=== PATIENT | male | born 1940 | race Hispanic/Latino ===

== ENCOUNTER 2018-07-26 11:07 | Inpatient (IN) | payer OTHER ==
[~2018-07-26] VITALS: Ht 160 cm; Wt 68.6 kg
[2018-07-26] VITALS (15 sets, daily range): BP systolic 81–124; BP diastolic 48–77
[2018-07-26 12:17] LABS: APPEARANCE,URINE Cloudy (CLEAR); BILIRUBIN,URINE Small (NEGATIVE); COLOR,URINE Dark Yellow (YELLOW); GLUCOSE, URINE (UA) Negative (NEGATIVE); KETONES,URINE Trace mg/dL (NEGATIVE); LEUKOCYTE ESTERASE ,URINE Trace (NEGATIVE); NITRATE,URINE Negative (NEGATIVE); OCCULT BLOOD,URINE Negative (NEGATIVE); PROTEIN,URINE Trace (NEGATIVE)
[2018-07-26 12:31] LABS: BACTERIA,URINE Few /HPF (None Seen); HYALINE CASTS, URINE 0-1 /LPF (0-1 /LPF); MUCUS,URINE Rare LPF (None Seen); RBC,URINE None Seen /HPF (0-1); SQUAMOUS EPITHELIAL CELL,UR Few /HPF (0-2); WBC,URINE 0-1 /HPF (0-1)
[2018-07-26 12:34] LABS: AMPHET/METH SCREEN,URINE NEGATIVE (NEGATIVE); BARBITURATE SCREEN, URINE NEGATIVE (NEGATIVE); BENZODIAZEPINES SCREEN,URINE NEGATIVE (NEGATIVE); CANNABINOID SCREEN,URINE NEGATIVE (NEGATIVE); COCAINE SCREEN,URINE NEGATIVE (NEGATIVE); OPIATE SCREEN,URINE NEGATIVE (NEGATIVE); PHENCYCLIDINE SCREEN,URINE NEGATIVE (NEGATIVE)
[2018-07-26 12:43] LABS: BASOPHILS % (AUTO) 0.4 % (0.0-5.0); EOSINOPHILS % (AUTO) 0.5 % (0.0-8.0); HEMATOCRIT 37.1 % (42-54); LYMPHOCYTES % (AUTO) 5.9 % (21.0-51.0); MEAN CORPUSCULAR HEMOGLOBIN 32.5 pg (27.0-33.0); MEAN CORPUSCULAR HGB CONC 34.1 g/dL (32.0-36.0); MEAN CORPUSCULAR VOLUME 95.3 fL (79-99); MONOCYTES % (AUTO) 10.8 % (3.0-13.0); NEUTROPHILS % (AUTO) 82.4 % (40.0-77.0); PLATELET COUNT (AUTO) 379 K/uL (130-400); RED BLOOD CELL COUNT(AUTO) 3.89 MIL/uL (4.50-6.20); RED CELL DISTRIBUTION WIDTH 12.9 % (11.0-15.5); WHITE BLOOD COUNT (AUTO) 11.3 K/uL (4.8-10.8)
[2018-07-26 12:51] LABS: CREATININE 1.8 mg/dL (0.5-1.5); POTASSIUM 3.7 mmol/L (3.5-5.1)
[2018-07-26 12:56] LABS: ALBUMIN 2.8 g/dL (3.5-5.0); BILIRUBIN,TOTAL 0.7 mg/dL (0.2-1.0); TOTAL PROTEIN, SERUM 8.1 g/dL (6.0-8.3)
[2018-07-26] MEDS ORDERED: SODIUM CHLORIDE 0.9% 500ML 500 ML IV ONE (14:14)
[2018-07-26] MEDS ORDERED: VANCOMYCIN 1GM+NS 250ML 250 ML IV ONE (15:32)
[2018-07-26 15:33] LABS: APPEARANCE,URINE CLEAR (CLEAR); BILIRUBIN,URINE NEGATIVE (NEGATIVE); COLOR,URINE YELLOW (YELLOW); GLUCOSE, URINE (UA) NEGATIVE (NEGATIVE); KETONES,URINE 5 mg/dL (NEGATIVE); LEUKOCYTE ESTERASE ,URINE NEGATIVE (NEGATIVE); NITRATE,URINE NEGATIVE (NEGATIVE); OCCULT BLOOD,URINE TRACE-INTACT (NEGATIVE); PH,URINE 5.5 (5.0-8.0); PROTEIN,URINE TRACE (NEGATIVE)
[2018-07-26 15:48] LABS: INR 1.1 (0.85-1.15); PARTIAL THROMBOPLASTIN TIME 35.9 SEC (26.3-35.5); PROTHROMBIN TIME 11.5 SEC (9.6-11.6)
[2018-07-26] MEDS ORDERED: ENOXAPARIN SODIUM 40 MG/0.4 ML SYRINGE SQ ONE (15:53)
[2018-07-26] MEDS ORDERED: SODIUM CHLORIDE 0.9% 50 ML IV ONE (15:54)
[2018-07-26] MEDS ORDERED: ZOSYN 3.375GM+NS 50ML 50 ML IV ONE (15:54)
[2018-07-26 15:55] LABS: RBC,URINE 0-1 /HPF (0-1); WBC,URINE 0-1 /HPF (0-1)
[2018-07-26 15:56] LABS: BACTERIA,URINE Few /HPF (None Seen); SQUAMOUS EPITHELIAL CELL,UR Rare /HPF (0-2)
[2018-07-26 15:57] LABS: HYALINE CASTS, URINE 0-1 /LPF (0-1 /LPF)
[2018-07-26] MEDS ORDERED: ZOSYN 3.375GM+NS 50ML 50 ML IV SCH (16:00)
[2018-07-26] MEDS ORDERED: NOREPINEPHRINE 4MG/NS 250ML 250 ML IV SCH (16:00)
[2018-07-26] MEDS: SODIUM CHLORIDE 0.9% 1000ML 1,000 ML IV SCH ×2 (16:00→22:50)
[2018-07-26 16:13] LABS: MYOGLOBIN 706 ng/mL (10-92); TROPONIN I < 0.04 ng/mL (0.00-0.06)
[2018-07-26 16:17] LABS: CREATINE KINASE, TOTAL 585 U/L (21-232)
[2018-07-26] MEDS ORDERED: PHARMACY COMMUNICATION MISC SCH ×2 (17:15→20:15)
[2018-07-26] MEDS ORDERED: VANCOMYCIN PROTOCOL PER PHARMACY IV SCH (17:45)
[2018-07-26] MEDS ORDERED: LEVOFLOXACIN 750 MG/D5W 150 ML 150 ML IV ONE (18:00)
[2018-07-26] MEDS ORDERED: HYDROCODONE/ACETAMINOPHEN 5/325 MG TAB PO PRN (18:15)
[2018-07-26] MEDS ORDERED: CHLO25TA3 PO (18:48)
[2018-07-26] MEDS ORDERED: VANCOMYCIN 500MG+NS 100ML 100 ML IV ONE (20:00)
[2018-07-26] MEDS: ZOSYN 3.375GM+NS 50ML 50 ML IV SCH (20:26)
[2018-07-27] VITALS (21 sets, daily range): BP systolic 84–151; BP diastolic 43–81
[2018-07-27 04:03] LABS: HEMATOCRIT 29.8 % (42-54); MEAN CORPUSCULAR HEMOGLOBIN 31.9 pg (27.0-33.0); MEAN CORPUSCULAR HGB CONC 33.7 g/dL (32.0-36.0); MEAN CORPUSCULAR VOLUME 94.7 fL (79-99); PLATELET COUNT (AUTO) 281 K/uL (130-400); RED BLOOD CELL COUNT(AUTO) 3.14 MIL/uL (4.50-6.20); RED CELL DISTRIBUTION WIDTH 13.1 % (11.0-15.5); WHITE BLOOD COUNT (AUTO) 8.7 K/uL (4.8-10.8)
[2018-07-27 04:18] LABS: CREATININE 1.4 mg/dL (0.5-1.5); MAGNESIUM 1.6 mg/dL (1.80-2.40); PHOSPHORUS 2.6 mg/dL (2.5-4.9); POTASSIUM 3.3 mmol/L (3.5-5.1)
[2018-07-27 04:31] LABS: INR 1.16 (0.85-1.15); PARTIAL THROMBOPLASTIN TIME 38.6 SEC (26.3-35.5); PROTHROMBIN TIME 12.1 SEC (9.6-11.6)
[2018-07-27] MEDS: ZOSYN 3.375GM+NS 50ML 50 ML IV SCH ×3 (04:43→21:13)
[2018-07-27] MEDS ORDERED: POTASSIUM CHLORIDE 10% ELIXIR 20 MEQ/15 ML UDCUP PO PRN (04:45)
[2018-07-27] MEDS ORDERED: MAGNESIUM 2GM PREMIX 50ML 50 ML IV PRN (04:45)
[2018-07-27] MEDS ORDERED: POTASSIUM CHLORIDE 20 MEQ ERTAB PO PRN (04:45)
[2018-07-27] MEDS ORDERED: POTASSIUM CHLORIDE 20MEQ/100ML 100 ML IV PRN (04:45)
[2018-07-27 04:46] LABS: ABG BASE EXCESS -5.8 mmol/L (-2.0-3.0); ABG OXYGEN SATURATION 98.7 % (95.0-99.0); ABG PCO2 27 mmHg (35-48)
[2018-07-27] MEDS ORDERED: POTASSIUM CHLORIDE 20 MEQ ERTAB PO ONE (04:46)
[2018-07-27] MEDS ORDERED: MAGNESIUM 2GM PREMIX 50ML 50 ML IV ONE (04:46)
[2018-07-27] MEDS: SODIUM CHLORIDE 0.9% 1000ML 1,000 ML IV SCH (05:31)
[2018-07-27] MEDS: FAMOTIDINE/PF 20 MG/2 ML VIAL IV SCH (08:01)
[2018-07-27] MEDS: ENOXAPARIN SODIUM 40 MG/0.4 ML SYRINGE SQ SCH (08:02)
[2018-07-27] MEDS ORDERED: PANTOPRAZOLE 40 MG/VIAL IVP SCH (09:00)
[2018-07-27] MEDS ORDERED: VANCOMYCIN 1GM+NS 250ML 250 ML IV SCH (14:00)
[2018-07-28 00:02] VITALS: BP 112/63
[2018-07-28 04:38] VITALS: BP 108/61
[2018-07-28] MEDS: ZOSYN 3.375GM+NS 50ML 50 ML IV SCH ×3 (04:40→20:30)
[2018-07-28 08:00] VITALS: BP 89/48
[2018-07-28] MEDS: FAMOTIDINE/PF 20 MG/2 ML VIAL IV SCH (08:56)
[2018-07-28] MEDS: ENOXAPARIN SODIUM 40 MG/0.4 ML SYRINGE SQ SCH (08:59)
[2018-07-28 12:00] VITALS: BP 105/47
[2018-07-28 16:00] VITALS: BP 104/50
[2018-07-28] MEDS ORDERED: LEVOFLOXACIN 500 MG/D5W 100 ML 100 ML IV SCH (18:00)
[2018-07-28 21:08] VITALS: BP 113/70
[2018-07-29 00:12] VITALS: BP 105/64
[2018-07-29] MEDS: ZOSYN 3.375GM+NS 50ML 50 ML IV SCH ×3 (04:26→21:50)
[2018-07-29 04:47] VITALS: BP 110/65
[2018-07-29 06:20] LABS: HEMATOCRIT 30.3 % (42-54); MEAN CORPUSCULAR HEMOGLOBIN 32.2 pg (27.0-33.0); MEAN CORPUSCULAR HGB CONC 34.1 g/dL (32.0-36.0); MEAN CORPUSCULAR VOLUME 94.3 fL (79-99); PLATELET COUNT (AUTO) 316 K/uL (130-400); RED BLOOD CELL COUNT(AUTO) 3.22 MIL/uL (4.50-6.20); RED CELL DISTRIBUTION WIDTH 12.9 % (11.0-15.5); WHITE BLOOD COUNT (AUTO) 8.3 K/uL (4.8-10.8)
[2018-07-29 06:35] LABS: CREATININE 1.4 mg/dL (0.5-1.5); POTASSIUM 3.7 mmol/L (3.5-5.1)
[2018-07-29 07:24] LABS: BASOPHILS % (MANUAL) 1 % (0-2); EOSINOPHILS % (MANUAL) 2 % (1-6); LYMPHOCYTES % (MANUAL) 3 % (22-44); MONOCYTES % (MANUAL) 4 % (2-9); SEGMENTED NEUTROPHILS % 90 % (40-70)
[2018-07-29 07:26] LABS: MAN.DIFF COMMENT-IMPRESSION MANUAL DIFFERENTIAL; PLATELET MORPHOLOGY COMMENT ADEQUATE
[2018-07-29 09:30] VITALS: BP 117/72
[2018-07-29] MEDS: FAMOTIDINE/PF 20 MG/2 ML VIAL IV SCH (09:37)
[2018-07-29] MEDS: ENOXAPARIN SODIUM 40 MG/0.4 ML SYRINGE SQ SCH (09:37)
[2018-07-29 12:15] VITALS: BP 100/55
[2018-07-29] MEDS ORDERED: ACETAMINOPHEN 325 MG TAB PO PRN (14:30)
[2018-07-29 17:05] VITALS: BP 129/81
[2018-07-29 20:17] VITALS: BP 152/82
[2018-07-30 00:07] VITALS: BP 129/67
[2018-07-30 04:07] VITALS: BP 118/68
[2018-07-30] MEDS: ZOSYN 3.375GM+NS 50ML 50 ML IV SCH ×3 (04:57→20:48)
[2018-07-30 09:02] VITALS: BP 95/56
[2018-07-30] MEDS: THIAMINE HCL 100 MG TABLET PO SCH (10:17)
[2018-07-30] MEDS: FAMOTIDINE/PF 20 MG/2 ML VIAL IV SCH (10:17)
[2018-07-30] MEDS: ENOXAPARIN SODIUM 40 MG/0.4 ML SYRINGE SQ SCH (10:18)
[2018-07-30] MEDS: MULTIVITAMIN TABLET PO SCH (10:18)
[2018-07-30 11:33] VITALS: BP 112/65
[2018-07-30 12:02] LABS: T4 (THYROXINE) 7.5 mcg/dL (4.7-13.3); THYROID STIMULATING HORMONE 0.86 uIU/mL (0.36-3.74)
[2018-07-30 15:45] VITALS: BP 94/62
[2018-07-30 19:15] VITALS: BP 113/61
[2018-07-31] VITALS (7 sets, daily range): BP systolic 100–117; BP diastolic 45–71
[2018-07-31] MEDS: ZOSYN 3.375GM+NS 50ML 50 ML IV SCH ×2 (05:58→12:39)
[2018-07-31] MEDS: MULTIVITAMIN TABLET PO SCH (09:19)
[2018-07-31] MEDS: THIAMINE HCL 100 MG TABLET PO SCH (09:19)
[2018-07-31] MEDS: FAMOTIDINE/PF 20 MG/2 ML VIAL IV SCH (09:20)
[2018-07-31] MEDS: ENOXAPARIN SODIUM 40 MG/0.4 ML SYRINGE SQ SCH (09:21)
[2018-08-01 03:35] VITALS: BP 130/86
[2018-08-01 07:00] VITALS: BP 123/74
[2018-08-01] MEDS: FAMOTIDINE 20MG TAB 20 MG TAB PO SCH (09:43)
[2018-08-01] MEDS: ENOXAPARIN SODIUM 40 MG/0.4 ML SYRINGE SQ SCH (09:43)
[2018-08-01] MEDS: LEVOFLOXACIN 500 MG TABLET PO SCH (09:43)
[2018-08-01] MEDS: MULTIVITAMIN TABLET PO SCH (09:43)
[2018-08-01] MEDS: THIAMINE HCL 100 MG TABLET PO SCH (09:43)
[2018-08-01 11:00] VITALS: BP 104/72
[2018-08-01 16:00] VITALS: BP 107/67
[2018-08-01 20:00] VITALS: BP 114/65
[2018-08-02] VITALS: BP 102/62
[2018-08-02 04:00] VITALS: BP 124/73
[2018-08-02 08:16] VITALS: BP 111/62
[2018-08-02] MEDS ORDERED: ZINC OXIDE OINT 30GM TUBE TP SCH (09:00)
[2018-08-02] MEDS: FAMOTIDINE 20MG TAB 20 MG TAB PO SCH (10:42)
[2018-08-02] MEDS: LEVOFLOXACIN 500 MG TABLET PO SCH (10:42)
[2018-08-02] MEDS: MULTIVITAMIN TABLET PO SCH (10:43)
[2018-08-02] MEDS: THIAMINE HCL 100 MG TABLET PO SCH (10:43)
[2018-08-02] MEDS: ENOXAPARIN SODIUM 40 MG/0.4 ML SYRINGE SQ SCH (10:43)
[2018-08-02 11:41] VITALS: BP 104/57
[2018-08-02] MEDS ORDERED: PNEUMOCOCCAL VACCINE POLYVALENT 0.5 ML/VIAL [PPV] IM ONE (16:30)
[2018-08-02 16:46] VITALS: BP 107/65
== END 2018-08-02 18:00 | DRG 871 ==
LOC: EDH 11:07 → EDHIP 15:15 → 2CH 17:49 → 3CH 07-27 11:20
PROVIDERS: ADMIT Internal Medicine Critical Care Medicine; ATTEND Internal Medicine Critical Care Medicine
DX: A41.9 Sepsis, unspecified organism (principal); N17.0 Acute kidney failure with tubular necrosis; N30.00 Acute cystitis without hematuria; I10 Essential (primary) hypertension; J84.10 Pulmonary fibrosis, unspecified; J44.9 Chronic obstructive pulmonary disease, unspecified; R65.20 Severe sepsis without septic shock; Z77.098 Contact with and (suspected) exposure to other hazardous, chiefly nonmedicinal, chemicals; G30.0 Alzheimer's disease with early onset; F02.80 Dementia in other diseases classified elsewhere, unspecified severity, without behavioral disturbance, psychotic disturbance, mood disturbance, and anxiety; B96.5 Pseudomonas (aeruginosa) (mallei) (pseudomallei) as the cause of diseases classified elsewhere; B96.89 Other specified bacterial agents as the cause of diseases classified elsewhere; Z86.11 Personal history of tuberculosis; Z74.01 Bed confinement status; Z87.891 Personal history of nicotine dependence
CPT/HCPCS: 36415; 36600; 70450; 71045; 71250; 80048; 80053; 80305; 81001; 82550; 82607; 82803; 83605; 83735; 83874; 84100; 84436; 84443; 84484; 85025; 85027; 85610; 85730; 86592; 87040; 87077; 87088; 87186; 87804; 90732; 92610; 93005; 97039; G0008; G0009; J1650; J1956; J2543; J3370; J3475; J3490; J7040; Q2035

== ENCOUNTER 2018-10-26 11:51 | Emergency (ER) | payer OTHER ==
[~2018-10-26 11:51] MED LIST: CHLO25TA3 PO
[2018-10-26 12:23] LABS: BASOPHILS % (AUTO) 0.6 % (0.0-5.0); EOSINOPHILS % (AUTO) 0.2 % (0.0-8.0); LYMPHOCYTES % (AUTO) 10.8 % (21.0-51.0); MEAN CORPUSCULAR HEMOGLOBIN 31.1 pg (27.0-33.0); MEAN CORPUSCULAR HGB CONC 33.4 g/dL (32.0-36.0); MEAN CORPUSCULAR VOLUME 93.2 fL (79-99); MONOCYTES % (AUTO) 6.1 % (3.0-13.0); NEUTROPHILS % (AUTO) 82.3 % (40.0-77.0); PLATELET COUNT (AUTO) 345 K/uL (130-400); RED CELL DISTRIBUTION WIDTH 16.6 % (11.0-15.5); WHITE BLOOD COUNT (AUTO) 9.3 K/uL (4.8-10.8)
[2018-10-26 12:26] LABS: CREATININE 1.5 mg/dL (0.5-1.5); POTASSIUM 4.1 mmol/L (3.5-5.1)
[2018-10-26 12:31] LABS: ALBUMIN 3.7 g/dL (3.5-5.0); BILIRUBIN,TOTAL 0.6 mg/dL (0.2-1.0)
[2018-10-26] MEDS ORDERED: SODIUM CHLORIDE 0.9% 500ML 500 ML IV ONE (12:38)
[2018-10-26 12:48] LABS: BILIRUBIN,URINE Negative (NEGATIVE); COLOR,URINE Yellow (YELLOW); GLUCOSE, URINE (UA) Negative (NEGATIVE); KETONES,URINE Trace mg/dL (NEGATIVE); LEUKOCYTE ESTERASE ,URINE Negative (NEGATIVE); NITRATE,URINE Negative (NEGATIVE); OCCULT BLOOD,URINE Negative (NEGATIVE); PROTEIN,URINE Negative (NEGATIVE)
[2018-10-26 12:49] LABS: APPEARANCE,URINE CLEAR (CLEAR)
[2018-10-26 13:02] LABS: BACTERIA,URINE None Seen /HPF (None Seen); RBC,URINE None Seen /HPF (0-1); SQUAMOUS EPITHELIAL CELL,UR Rare /HPF (0-2); WBC,URINE None Seen /HPF (0-1)
[2018-10-26 13:03] LABS: HYALINE CASTS, URINE 0-1 /LPF (0-1 /LPF)
== END 2018-10-26 15:43 | disposition home or self-care (01) ==
LOC: EDH 11:51
DX: R41.82 Altered mental status, unspecified (principal); I10 Essential (primary) hypertension; J44.9 Chronic obstructive pulmonary disease, unspecified; Z98.890 Other specified postprocedural states; Z87.891 Personal history of nicotine dependence
CPT/HCPCS: 36415; 70450; 71045; 80053; 81001; 84484; 85025; 87040 ×2; 87804 ×2; 93005; 96360; 96361; 99284; J7040